=== PATIENT | male | born 1950 | race Caucasian/White ===

== ENCOUNTER 2021-09-03 02:15 | Emergency (ER) | payer MEDICARE ==
[2021-09-03] MEDS ORDERED: Orphenadrine Citrate 60 MG/2 ML VIAL ONE (03:10)
== END 2021-09-03 04:00 | disposition home or self-care (01) ==
LOC: MADERS 02:15
DX: M43.6 Torticollis (principal); E11.9 Type 2 diabetes mellitus without complications; E78.5 Hyperlipidemia, unspecified; I10 Essential (primary) hypertension; F17.210 Nicotine dependence, cigarettes, uncomplicated; Z79.4 Long term (current) use of insulin; Z79.899 Other long term (current) drug therapy
CPT/HCPCS: 96372; 99283; J2360